=== PATIENT | male | born 1945 | race Caucasian/White ===

== ENCOUNTER 2019-01-08 06:45 | Day surgery (SDC) ==
[2019-01-08] MEDS: TETRACAINE 0.5% UNIT-DOSE OP PRN ×2 (06:50→08:05)
[2019-01-08] MEDS: BETADINE OPTH PREP OP PRN ×2 (06:50→08:05)
[2019-01-08] MEDS: CYCLOGYL 2% OPTH OP PRN ×3 (06:51→07:03)
[2019-01-08] MEDS ORDERED: ZOFRAN 4 MG/2 ML IVP ONE (07:01)
[2019-01-08] MEDS ORDERED: LIDOCAINE 1% 20 ML MDV ID STA (07:01)
[2019-01-08] MEDS ORDERED: SUBLIMAZE ONE (08:05)
[2019-01-08] MEDS ORDERED: VERSED ONE (08:05)
[2019-01-08] MEDS ORDERED: ZOFRAN 4 MG/2 ML ONE (08:05)
[2019-01-08] MEDS: BSS WITH EPINEPHRINE OP ONE ×2 (08:15→08:17)
[2019-01-08] MEDS: DEX-MOXI-KETOR OPTH INJ 1/0.5/0.4 MG/ML IO ONE ×2 (08:15→08:17)
[2019-01-08] MEDS: LIDOCAINE 1%/PHENYLEPHRINE 1.5% BSS (SURGERY) INTRAOCULA ONE ×2 (08:16→08:17)
[2019-01-08 12:13] VITALS: BP 153/74
== END 2019-01-08 09:10 | disposition home or self-care (01) ==
LOC: SURG 06:45
PROVIDERS: ATTEND Ophthalmology
DX: H25.12 Age-related nuclear cataract, left eye (principal)

== ENCOUNTER 2019-01-22 06:14 | Day surgery (SDC) | payer OTHER ==
[2019-01-22] MEDS: TETRACAINE 0.5% UNIT-DOSE OP PRN ×2 (06:20→07:00)
[2019-01-22] MEDS: BETADINE OPTH PREP OP PRN ×2 (06:21→07:04)
[2019-01-22] MEDS: CYCLOGYL 2% OPTH OP PRN ×3 (06:22→06:32)
[2019-01-22 07:02] VITALS: TEMP 98.6
[2019-01-22] MEDS ORDERED: BSS WITH EPINEPHRINE OP ONE (07:03)
[2019-01-22] MEDS ORDERED: ZOFRAN 4 MG/2 ML IVP ONE (07:03)
[2019-01-22] MEDS ORDERED: DEX-MOXI-KETOR OPTH INJ 1/0.5/0.4 MG/ML IO ONE (07:03)
[2019-01-22] MEDS ORDERED: LIDOCAINE 1%/PHENYLEPHRINE 1.5% BSS (SURGERY) INTRAOCULA ONE (07:03)
[2019-01-22] MEDS ORDERED: ZOFRAN 4 MG/2 ML ONE (07:05)
[2019-01-22] MEDS ORDERED: DIPRIVAN 20 ML VIAL IVP ONE (07:05)
[2019-01-22] MEDS ORDERED: VERSED ONE (07:05)
[2019-01-24 15:27] VITALS: BP 136/69
== END 2019-01-22 08:15 | disposition home or self-care (01) ==
LOC: SURG 06:14
PROVIDERS: ATTEND Ophthalmology
DX: H25.11 Age-related nuclear cataract, right eye (principal)